=== PATIENT | male | born 1960 | race Caucasian/White ===

== ENCOUNTER → 2017-07-14 | Outpatient (CLI) | payer BC ==
--- NOTE | 2017-07-14 08:44 | DIAGNOSTIC IMAGING REPORT ---
CT LUNG SCREENING, LOW DOSE WITH COMPUTER-AIDED DETECTION (CAD) CLINICAL HISTORY: Lung cancer screening. Significant smoking history. COMPARISON STUDY: Chest radiograph April 08, 2012. CT DOSE: 89.97 mGy.cm TECHNIQUE: Low-dose helical CT was acquired without intravenous contrast from lung apices to bases and reconstructed at 2.5 mm every 2 mm. CAD was utilized for this study. A dose lowering technique was utilized adhering to the principles of ALARA. FINDINGS: No enlarged axillary, mediastinal or hilar lymph nodes are present. The size of the heart is at the upper limits of normal. There is moderate coronary artery calcification. There is no pericardial effusion. Bilateral gynecomastia is incidentally noted. Central airways are patent. There are no pulmonary nodules. There is no consolidation to suggest pneumonia. No pneumothorax or pleural effusion is noted. Bony thorax is unremarkable. There is a small splenule. Upper abdomen is otherwise unremarkable. IMPRESSION: 1. No pulmonary nodules. Lung RADS 1. Negative study. 2. No acute intrathoracic findings. 3. Moderate coronary artery calcification. CAD FINDINGS: Overall Lung RADS Category: 1 Lung RADS Management Recommendation: Continue annual lung cancer screening. Lung RADS Follow Up Date: 2018-07-14 Electronically signed by: Richard Sweeney M.D. 07/14/2017 8:43 AM Dictated Date/Time: 07/14/2017 8:29 AM
== END | disposition home or self-care (01) ==
LOC: C.CTS 07:48
PROVIDERS: ATTEND Family Medicine
DX: Z12.2 Encounter for screening for malignant neoplasm of respiratory organs (principal); F17.200 Nicotine dependence, unspecified, uncomplicated; I25.10 Atherosclerotic heart disease of native coronary artery without angina pectoris